=== PATIENT | female | born 2000 | race Caucasian/White ===

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

== ENCOUNTER → 2021-01-31 | Outpatient (CLI) | payer OTHER ==
[~2021-01-31] MED LIST changes: +TRIDERM28.4 GM TOP
[2021-02-03 20:06] LABS: CHLAMYDIA BY NAA Negative (Negative); GONOCOCCUS BY NAA Negative (Negative); TRICH VAG BY NAA Negative (Negative)
== END | disposition home or self-care (01) ==
LOC: LAB SHORT 19:07 → LAB 19:07
PROVIDERS: Physician Assistant Medical
DX: Z72.51 High risk heterosexual behavior (principal)
CPT/HCPCS: 87491; 87591; 87661

== ENCOUNTER → 2021-01-31 | Outpatient (CLI) | payer OTHER ==
[2021-02-02 08:10] LABS: HIV SCREEN 4TH GENERATION WRFX Non Reactive (Non Reactive)
[2021-02-02 09:46] LABS: HBSAG SCREEN Positive (Negative); HEP A AB, IGM Negative (Negative); HEP B CORE AB, IGM Negative (Negative); HEP C VIRUS AB 6.5 (0.0-0.9)
== END | disposition home or self-care (01) ==
LOC: LAB 19:01 → LAB SHORT 19:01
PROVIDERS: Physician Assistant Medical
DX: Z72.51 High risk heterosexual behavior (principal)
CPT/HCPCS: 80074; 86592; 87389

== ENCOUNTER → 2021-02-07 | Outpatient (CLI) | payer OTHER ==
[2021-02-07 18:28] LABS: Albumin/Globulin Ratio 1.2 (0.8-1.8); Bilirubin, Direct 0.1 mg/dL (0.0-0.3); Bilirubin, Indirect 0.2 mg/dL (0.1-0.7); Bilirubin, Total 0.3 mg/dL (0.1-1.0); Globulin, Blood 3.3 g/dL (2.2-4.0); Total Protein, Blood 7.3 g/dL (6.4-8.2)
[2021-02-10 04:11] LABS: HBSAG SCREEN Negative (Negative); HEP A AB, IGM Negative (Negative); HEP B CORE AB, IGM Negative (Negative); HEP C VIRUS AB 6.5 (0.0-0.9)
== END | disposition home or self-care (01) ==
LOC: LAB SHORT 18:13
PROVIDERS: Physician Assistant Medical
DX: Z72.51 High risk heterosexual behavior (principal)
CPT/HCPCS: 80074; 80076

== ENCOUNTER 2021-07-20 20:09 | Emergency (ER) | payer OTHER ==
[~2021-07-20] VITALS: Ht 170.2 cm; Wt 68.0 kg
== END 2021-07-20 23:22 | disposition home or self-care (01) ==
LOC: ER 20:09
DX: M79.641 Pain in right hand (principal); Z88.0 Allergy status to penicillin
CPT/HCPCS: 29125; 73130; 99283-25

== ENCOUNTER → 2022-01-03 | Outpatient (CLI) | payer OTHER ==
[2022-01-06 01:09] LABS: CHLAMYDIA TRACHOMATIS, NAA Negative (Negative)
== END ==
LOC: LAB 19:06 → LAB SHORT 19:06
PROVIDERS: Physician Assistant Medical
DX: N89.8 Other specified noninflammatory disorders of vagina (principal); Z86.19 Personal history of other infectious and parasitic diseases
CPT/HCPCS: 87491; 87591

== ENCOUNTER → 2022-01-24 | Outpatient (CLI) | payer OTHER ==
[2022-01-26 10:32] LABS: Candida species (DNA Probe) Negative (NEGATIVE); G. vaginalis (DNA Probe) Negative (NEGATIVE); T. vaginalis (DNA Probe) Negative (NEGATIVE)
== END | disposition home or self-care (01) ==
LOC: LAB SHORT 15:04 → LAB 15:04
PROVIDERS: Physician Assistant Medical
DX: N89.8 Other specified noninflammatory disorders of vagina (principal); Z72.51 High risk heterosexual behavior
CPT/HCPCS: 87480; 87510; 87660

== ENCOUNTER → 2022-01-26 | Outpatient (CLI) | payer OTHER ==
[2022-02-01 05:11] LABS: HSV-1 DNA Negative (Negative); HSV-2 DNA Negative (Negative)
== END ==
LOC: LAB 18:52 → LAB SHORT 18:52
PROVIDERS: Physician Assistant Surgical
DX: N89.8 Other specified noninflammatory disorders of vagina (principal)
CPT/HCPCS: 87529

== ENCOUNTER 2022-02-23 07:53 | Emergency (ER) | payer OTHER ==
[~2022-02-23] VITALS: Ht 170.2 cm; Wt 68.0 kg
[2022-02-23] MEDS ORDERED: Prednisone20 MG PO (08:46)
[2022-02-23] MEDS ORDERED: Pepcid20 MG PO (08:46)
[2022-02-23] MEDS ORDERED: Vistaril25 MG PO (08:46)
== END 2022-02-23 08:51 | disposition home or self-care (01) ==
LOC: ER 07:53
DX: L23.9 Allergic contact dermatitis, unspecified cause (principal); Z88.0 Allergy status to penicillin; Z79.899 Other long term (current) drug therapy
CPT/HCPCS: 99282; A9270; J7512; Q0177

== ENCOUNTER → 2022-04-26 | Outpatient (CLI) | payer OTHER ==
[~2022-04-26] MED LIST changes: +Prednisone20 MG PO; +Vistaril25 MG PO
[2022-04-27 11:50] LABS: Candida species (DNA Probe) Positive (NEGATIVE); G. vaginalis (DNA Probe) Negative (NEGATIVE); T. vaginalis (DNA Probe) Negative (NEGATIVE)
[2022-04-28 05:10] LABS: CHLAMYDIA TRACHOMATIS, NAA Negative (Negative)
== END ==
LOC: LAB 14:14 → LAB SHORT 14:14
PROVIDERS: Physician Assistant Surgical
DX: N76.0 Acute vaginitis (principal)
CPT/HCPCS: 87480; 87491; 87510; 87591; 87660

== ENCOUNTER 2022-09-05 19:28 | Emergency (ER) | payer OTHER ==
[~2022-09-05] VITALS: Ht 167.6 cm; Wt 65.8 kg
[2022-09-05 19:44] LABS: Source, Urine Clean Catch
[2022-09-05 20:04] LABS: Bilirubin, Urine Neg (Neg); Blood, Urine Neg (Neg); Color, Urine Yellow (P-Yellow); Glucose Qualitative, Urine Neg (Neg); Ketones, Urine Neg (Neg); Leukocyte Esterase, Urine Neg (Neg); Nitrite, Urine Neg (Neg); Protein, Urine 1+ (Neg); Specific Gravity, Urine 1.015 (1.003-1.022); Urobilinogen, Urine NORM (Normal)
[2022-09-05 20:19] LABS: BASOPHILS ABSOLUTE AUTO 0.06 K/mm3 (0.00-0.23); BASOPHILS PERCENT AUTO 1 % (0-2); EOSINOPHILS ABSOLUTE AUTO 0.12 K/mm3 (0.00-0.68); EOSINOPHILS PERCENT AUTO 1 % (0-6); Hematocrit 37.2 % (33.0-51.0); Hemoglobin 12.8 g/dL (11.5-16.0); IMMATURE GRAN ABSOLUTE AUTO 0.03 K/mm3 (0.00-0.10); IMMATURE GRAN PERCENT AUTO 0 % (0-1); LYMPHOCYTES PERCENT AUTO 40 % (21-46); MONOCYTES ABSOLUTE AUTO 0.67 K/mm3 (0.16-1.47); MONOCYTES PERCENT AUTO 6 % (4-13); Mean Corpuscular HGB 31.4 pg (26.0-34.0); Mean Corpuscular HGB Conc 34.4 g/dL (31.5-36.5); Mean Corpuscular Volume 91 fL (80-100); Mean Platelet Volume 8.9 fL (9.1-12.4); NEUTROPHILS PERCENT AUTO 52 % (41-73); Platelet Count 328 K/mm3 (150-400); RDW Coefficient Variation 11.9 % (11.7-14.2); RDW Standard Deviation 39.8 fL (35.1-46.3); Red Blood Cell Count 4.08 M/mm3 (3.80-5.20); White Blood Cell Count 11.38 K/mm3 (4.00-11.30)
[2022-09-05 20:29] LABS: Appearance, Urine Hazy (Clear); Bacteria Mod /hpf; Mucus Light (0-Heavy); Red Blood Cells, Urine 0-2 /hpf (0-2); Squamous Epithelial Cells Mod /hpf (Few)
[2022-09-05 20:46] LABS: Albumin, Blood 4.2 g/dL (3.4-5.0); Albumin/Globulin Ratio 1.2 (0.8-1.8); Bilirubin, Total 0.8 mg/dL (0.1-1.0); Bun/Creatinine Ratio 16.5 (12.0-20.0); Calcium, Blood 9.1 mg/dL (8.5-10.1); Creatinine, Blood 0.67 mg/dL (0.40-1.00); Globulin, Blood 3.5 g/dL (2.2-4.0); Potassium, Blood 3.5 mmol/L (3.5-5.5); Total Protein, Blood 7.7 g/dL (6.4-8.2)
[2022-09-05 21:45] VITALS: BP 108/67
[2022-09-05] MEDS ORDERED: CEPH500 PO (21:59)
== END 2022-09-05 22:12 | disposition home or self-care (01) ==
LOC: ER 19:28
PROVIDERS: Student in an Organized Health Care Education/Training Program
DX: O99.891 Other specified diseases and conditions complicating pregnancy (principal); R10.30 Lower abdominal pain, unspecified; Z3A.01 Less than 8 weeks gestation of pregnancy; Z88.0 Allergy status to penicillin
CPT/HCPCS: 76801; 76817; 76830; 80053; 81001; 83690; 84702; 85025; 99284-25

== ENCOUNTER → 2022-09-07 | Outpatient (CLI) | payer OTHER ==
[~2022-09-07] MED LIST changes: +ACET325 PO
== END | disposition home or self-care (01) ==
LOC: LAB 16:55 → LAB SHORT 16:55
DX: O02.1 Missed abortion (principal)
CPT/HCPCS: 84702

== ENCOUNTER 2022-09-08 00:27 | Emergency (ER) | payer OTHER ==
[~2022-09-08] VITALS: Ht 167.6 cm; Wt 65.8 kg
[~2022-09-08 00:27] MED LIST changes: -ACET325 PO
[2022-09-08 01:12] LABS: BASOPHILS ABSOLUTE AUTO 0.06 K/mm3 (0.00-0.23); BASOPHILS PERCENT AUTO 1 % (0-2); EOSINOPHILS ABSOLUTE AUTO 0.12 K/mm3 (0.00-0.68); EOSINOPHILS PERCENT AUTO 1 % (0-6); Hematocrit 33.7 % (33.0-51.0); Hemoglobin 11.7 g/dL (11.5-16.0); IMMATURE GRAN ABSOLUTE AUTO 0.02 K/mm3 (0.00-0.10); IMMATURE GRAN PERCENT AUTO 0 % (0-1); LYMPHOCYTES ABSOLUTE AUTO 4.14 K/mm3 (0.84-5.20); LYMPHOCYTES PERCENT AUTO 39 % (21-46); MONOCYTES ABSOLUTE AUTO 0.73 K/mm3 (0.16-1.47); MONOCYTES PERCENT AUTO 7 % (4-13); Mean Corpuscular HGB 31.2 pg (26.0-34.0); Mean Corpuscular HGB Conc 34.7 g/dL (31.5-36.5); Mean Corpuscular Volume 90 fL (80-100); Mean Platelet Volume 8.9 fL (9.1-12.4); NEUTROPHILS PERCENT AUTO 53 % (41-73); Platelet Count 318 K/mm3 (150-400); RDW Standard Deviation 38.9 fL (35.1-46.3); Red Blood Cell Count 3.75 M/mm3 (3.80-5.20); White Blood Cell Count 10.67 K/mm3 (4.00-11.30)
[2022-09-08] MEDS ORDERED: ACET325 PO (01:17)
[2022-09-08 01:32] LABS: Albumin, Blood 3.8 g/dL (3.4-5.0); Albumin/Globulin Ratio 1.2 (0.8-1.8); Bilirubin, Total 0.4 mg/dL (0.1-1.0); Bun/Creatinine Ratio 13.5 (12.0-20.0); Calcium, Blood 8.8 mg/dL (8.5-10.1); Creatinine, Blood 0.67 mg/dL (0.40-1.00); Globulin, Blood 3.1 g/dL (2.2-4.0); Potassium, Blood 3.5 mmol/L (3.5-5.5); Total Protein, Blood 6.9 g/dL (6.4-8.2)
[2022-09-08 02:30] VITALS: BP 127/70
== END 2022-09-08 02:35 | disposition home or self-care (01) ==
LOC: ER 00:27
PROVIDERS: Emergency Medicine
DX: O99.891 Other specified diseases and conditions complicating pregnancy (principal); R10.30 Lower abdominal pain, unspecified; Z88.0 Allergy status to penicillin; Z3A.01 Less than 8 weeks gestation of pregnancy
CPT/HCPCS: 76801; 76817; 80053; 84702; 85025; 86900; 86901; A9270; J2405

== ENCOUNTER → 2022-09-08 | Outpatient (CLI) | payer OTHER ==
[2022-09-10 21:08] LABS: CHLAMYDIA TRACHOMATIS, NAA Negative (Negative)
== END | disposition home or self-care (01) ==
LOC: LAB SHORT 16:33 → LAB 16:33
PROVIDERS: Obstetrics & Gynecology
DX: Z11.3 Encounter for screening for infections with a predominantly sexual mode of transmission (principal)
CPT/HCPCS: 87491; 87591

== ENCOUNTER 2022-09-10 18:42 | Emergency (ER) | payer OTHER ==
[~2022-09-10] VITALS: Ht 167.6 cm; Wt 65.8 kg
[~2022-09-10 18:42] MED LIST changes: +ACET325 PO
[2022-09-10 19:27] LABS: Source, Urine Clean Catch
[2022-09-10 19:32] LABS: Appearance, Urine Clear (Clear); Bilirubin, Urine Neg (Neg); Blood, Urine 1+ (Neg); Color, Urine Yellow (P-Yellow); Glucose Qualitative, Urine Neg (Neg); Ketones, Urine 3+ (Neg); Leukocyte Esterase, Urine Neg (Neg); Nitrite, Urine Neg (Neg); Protein, Urine Neg (Neg); Specific Gravity, Urine 1.025 (1.003-1.022); Urobilinogen, Urine NORM (Normal)
[2022-09-10 19:39] LABS: Bacteria Few /hpf; Mucus Light (0-Heavy); Squamous Epithelial Cells Few /hpf (Few); White Blood Cells, Urine 0-2 /hpf (0-5)
[2022-09-10 20:15] VITALS: BP 121/64
== END 2022-09-10 21:45 | disposition home or self-care (01) ==
LOC: ER 18:42
PROVIDERS: Emergency Medicine
DX: O26.891 Other specified pregnancy related conditions, first trimester (principal); R10.30 Lower abdominal pain, unspecified; M54.9 Dorsalgia, unspecified; Z3A.01 Less than 8 weeks gestation of pregnancy; Z88.0 Allergy status to penicillin
CPT/HCPCS: 76801; 76817; 81001; 84702

== ENCOUNTER → 2022-10-06 | Outpatient (CLI) | payer OTHER | LOC: PLD 07:57 → LAB SHORT 07:57 | DX: O03.39 Incomplete spontaneous abortion with other complications (principal) | CPT/HCPCS: 88305 ==

== ENCOUNTER → 2022-10-06 | Outpatient (CLI) | payer OTHER ==
[2022-10-06 18:43] LABS: BASOPHILS ABSOLUTE AUTO 0.07 K/mm3 (0.00-0.23); BASOPHILS PERCENT AUTO 1 % (0-2); EOSINOPHILS ABSOLUTE AUTO 0.11 K/mm3 (0.00-0.68); EOSINOPHILS PERCENT AUTO 1 % (0-6); Hematocrit 35.5 % (33.0-51.0); Hemoglobin 11.8 g/dL (11.5-16.0); IMMATURE GRAN ABSOLUTE AUTO 0.02 K/mm3 (0.00-0.10); IMMATURE GRAN PERCENT AUTO 0 % (0-1); LYMPHOCYTES ABSOLUTE AUTO 3.68 K/mm3 (0.84-5.20); LYMPHOCYTES PERCENT AUTO 42 % (21-46); MONOCYTES ABSOLUTE AUTO 0.53 K/mm3 (0.16-1.47); MONOCYTES PERCENT AUTO 6 % (4-13); Mean Corpuscular HGB 30.9 pg (26.0-34.0); Mean Corpuscular HGB Conc 33.2 g/dL (31.5-36.5); Mean Corpuscular Volume 93 fL (80-100); Mean Platelet Volume 9.1 fL (9.1-12.4); NEUTROPHILS ABSOLUTE AUTO 4.27 K/mm3 (1.96-9.15); NEUTROPHILS PERCENT AUTO 49 % (41-73); Platelet Count 432 K/mm3 (150-400); RDW Coefficient Variation 11.8 % (11.7-14.2); RDW Standard Deviation 40.1 fL (35.1-46.3); Red Blood Cell Count 3.82 M/mm3 (3.80-5.20); White Blood Cell Count 8.68 K/mm3 (4.00-11.30)
[2022-10-06 20:55] LABS: Percent Saturation 20.5 % (15.0-50.0)
== END | disposition home or self-care (01) ==
LOC: LAB SHORT 16:52 → LAB 16:52
PROVIDERS: Obstetrics & Gynecology
DX: N93.9 Abnormal uterine and vaginal bleeding, unspecified (principal)
CPT/HCPCS: 82728; 83540; 83550; 84702; 85025

== ENCOUNTER 2022-11-27 19:55 | Emergency (ER) | payer OTHER ==
[~2022-11-27] VITALS: Ht 170.2 cm; Wt 65.8 kg
[2022-11-27 20:19] VITALS: BP 119/73
== END 2022-11-27 21:14 | disposition home or self-care (01) ==
LOC: ER 19:55
DX: T19.2XXA Foreign body in vulva and vagina, initial encounter (principal); Z88.0 Allergy status to penicillin
CPT/HCPCS: 99282

== ENCOUNTER 2022-12-06 19:43 | Emergency (ER) | payer OTHER ==
[~2022-12-06] VITALS: Ht 170.2 cm; Wt 65.8 kg
[2022-12-06 20:07] VITALS: BP 125/85
== END 2022-12-06 20:55 | disposition left against medical advice (07) ==
LOC: ER 19:43
DX: R13.10 Dysphagia, unspecified (principal); Z53.21 Procedure and treatment not carried out due to patient leaving prior to being seen by health care provider
CPT/HCPCS: 87081; 87147; 87430; 99281

== ENCOUNTER → 2023-01-12 | Outpatient (CLI) | payer OTHER ==
[2023-01-14 00:10] LABS: CHLAMYDIA TRACHOMATIS, NAA Negative (Negative)
[2023-01-14 11:15] LABS: Candida species (DNA Probe) Negative (NEGATIVE); G. vaginalis (DNA Probe) Negative (NEGATIVE); T. vaginalis (DNA Probe) Negative (NEGATIVE)
== END ==
LOC: LAB SHORT 17:12 → LAB 17:12
PROVIDERS: Obstetrics & Gynecology
DX: Z01.419 Encounter for gynecological examination (general) (routine) without abnormal findings (principal); Z11.3 Encounter for screening for infections with a predominantly sexual mode of transmission; N76.0 Acute vaginitis
CPT/HCPCS: 87480; 87491; 87510; 87591; 87660; G0145

== ENCOUNTER 2023-04-22 21:35 | Emergency (ER) | payer OTHER ==
[~2023-04-22] VITALS: Ht 170.2 cm; Wt 65.8 kg
[2023-04-22 21:52] VITALS: BP 118/69
== END 2023-04-22 22:55 | disposition home or self-care (01) ==
LOC: ER 21:35
DX: F41.9 Anxiety disorder, unspecified (principal); R11.2 Nausea with vomiting, unspecified; F17.290 Nicotine dependence, other tobacco product, uncomplicated; Z88.0 Allergy status to penicillin
CPT/HCPCS: 99283; A9270

== ENCOUNTER → 2023-12-21 | Outpatient (CLI) | payer OTHER ==
[2023-12-21 19:39] LABS: Bacterial Vaginosis PCR Negative (NEGATIVE); Candida Group, PCR NOT DETECTED (NOT DETECT); Candida glabrata-krusei, PCR NOT DETECTED (NOT DETECT)
== END ==
LOC: LAB 16:00 → LAB SHORT 16:00
PROVIDERS: Obstetrics & Gynecology
DX: N76.0 Acute vaginitis (principal)
CPT/HCPCS: 87481; 87661; 87801

== ENCOUNTER → 2025-01-01 | Outpatient (CLI) | payer OTHER | END | disposition home or self-care (01) | LOC: LAB SHORT 17:43 → LAB 17:43 | DX: R31.9 Hematuria, unspecified (principal) | CPT/HCPCS: 87086 ==

== ENCOUNTER → 2025-03-08 | Outpatient (CLI) | payer OTHER | END | disposition home or self-care (01) | LOC: LAB 16:17 → LAB SHORT 16:17 | DX: N39.0 Urinary tract infection, site not specified (principal) | CPT/HCPCS: 87077; 87086; 87147; 87186 ==

== ENCOUNTER → 2025-03-30 | Outpatient (CLI) | payer OTHER | END | disposition home or self-care (01) | LOC: LAB SHORT 16:23 → LAB 16:23 | DX: R31.0 Gross hematuria (principal); R30.0 Dysuria | CPT/HCPCS: 87086 ==